=== PATIENT | female | born 1950 | race Caucasian/White ===

== ENCOUNTER → 2017-01-18 | Outpatient (CLI) | payer MEDICARE ==
--- NOTE | 2017-01-18 11:18 | KCIC ---
Bone mineral density exam History: Height loss, family history of osteoporosis Comparison: None Findings: Bone mineral density examination utilizing DEXA was performed. Left hip bone mineral density of 0.669 g/cm2 corresponds with a T score -2.2, Z score -1.0. The bone mineral density of the lumbar spine was 0.751 g/cm2 which corresponds with a T-score of -2.7, Z score -0.9. By World Congress on Osteoporosis criteria, a T score of 0 to-1 SD is considered to be within normal limits. A T score of -1 to -2.5 SD is considered osteopenia. A T score less than -2.5 SD is considered osteoporosis Impression: 1. 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 Electronically signed by: Aniceto Patrick MD (01/18/2017 11:14 AM) [id number]
== END | disposition home or self-care (01) ==
LOC: KCIC DEXA 10:45
PROVIDERS: ATTEND Family Medicine
DX: M81.0 Age-related osteoporosis without current pathological fracture (principal); Z78.0 Asymptomatic menopausal state
CPT/HCPCS: 77080

== ENCOUNTER → 2017-03-12 | Outpatient (CLI) | payer MEDICARE ==
--- NOTE | 2017-03-12 16:14 | KCIC ---
Bilateral digital screening mammograms: Reason for examination: Routine screening. Comparison is made to previous studies dated 03/12/2016 and 03/11/2015. Interpretation is made with the benefit of CAD. The skin and nipples show no abnormalities. No abnormal lymph nodes are seen. The breast parenchyma is predominantly fatty. (Breast density: Category A.) There are small nodules consistent with intramammary lymph nodes again seen bilaterally. There are no new dominant masses, suspicious calcifications or architectural distortions. A few benign calcifications are seen. Impression: No evidence of malignancy. Recommend routine screening. BI-RADS Category 2: Benign. "Our facility is accredited by the [employer] Mammography Program." This patient's information has been entered into a reminder system for the patient to be notified with the results of her examination and a target date for the next mammogram. Electronically signed by: Zandra Sosa MD (03/12/2017 4:11 PM) [id number]
== END | disposition home or self-care (01) ==
LOC: KCIC MAMMO 11:19
PROVIDERS: ATTEND Obstetrics & Gynecology
DX: Z12.31 Encounter for screening mammogram for malignant neoplasm of breast (principal)
CPT/HCPCS: G0202; 77067

== ENCOUNTER → 2019-03-04 | Outpatient (CLI) | payer MEDICARE ==
--- NOTE | 2019-03-04 17:15 | KCIC ---
Bone mineral density exam History: Osteoporosis, postmenopausal, takes Fosamax Comparison: 01/18/2017 Findings: Bone mineral density examination utilizing DEXA was performed. Left hip bone mineral density of 0.709 g/cm2 corresponds with a T score -1.9, Z score is -0.6. There has been 5.9% increase. The bone mineral density of the lumbar spine was 0.816 g/cm2 which corresponds with a T-score of -2.1, Z score -0.2. There has been 8.7% increase. By World Congress on Osteoporosis criteria, a T score of 0 to-1 SD is considered to be within normal limits. A T score of -1 to -2.5 SD is considered osteopenia. A T score less than -2.5 SD is considered osteoporosis Impression: 1. There is osteopenia of the lumbar spine and the left hip. Electronically signed by: Aniceto Patrick MD (03/04/2019 5:12 PM) [id number]
== END | disposition home or self-care (01) ==
LOC: KCIC DEXA 10:53
PROVIDERS: ATTEND Family Medicine
DX: M85.88 Other specified disorders of bone density and structure, other site (principal); M81.0 Age-related osteoporosis without current pathological fracture; Z78.0 Asymptomatic menopausal state
CPT/HCPCS: 77080

== ENCOUNTER → 2019-03-31 | Outpatient (CLI) | payer MEDICARE ==
--- NOTE | 2019-03-31 16:20 | KCIC ---
CHEST PA LATERAL History: Right lower lobe pneumonia, cough, temperature Comparison: None. Findings: 2 views of the chest are submitted. There is no lobar consolidation, pleural fluid, pneumothorax. Cardiac silhouette is within normal limits. There is somewhat coarse interstitial opacity of the right lung base. Impression: 1. There is no lobar consolidation. There is interstitial opacity most notable near the right lung base of uncertain chronicity, could be due to degree of interstitial infiltrate or fibrotic change. Electronically signed by: Aniceto Patrick MD (03/31/2019 4:17 PM) [id number]
== END | disposition home or self-care (01) ==
LOC: KCIC 13:25
PROVIDERS: ATTEND Family Medicine
DX: J18.1 Lobar pneumonia, unspecified organism (principal)
CPT/HCPCS: 71046

== ENCOUNTER → 2021-09-08 | Outpatient (CLI) | payer MEDICARE ==
--- NOTE | 2021-09-08 10:34 | KCIC ---
Bone Densitometry History: Reason: ASYMPTOMATIC MENOPAUSAL STATE / Spl. Instructions: / History: Comparison: 03/04/2019 Findings: Bone Densitometry was performed with dual photon absorption of the lumbar spine and proximal femurs. Lumbar Spine: Bone density is 0.811 g/cm2 for L1-L4. T-score is -2.1. Z-score is -0.0. 1.4 % decrease from 03/04/20 19. Left total femur: Bone density is 0.729 g/cm2. T-score is -1.7. Z-score is -0.3. 2.8 % increase from 03/04/2019. IMPRESSION: Osteopenia in the lumbar spine and left total femur. Bone mineral density has slightly decreased in t he lumbar spine and mildly increased in the left femur. World Health Organization definition of osteoporosis and osteopenia for women: normal equal s T score at or above -1.0 standard deviations; osteopenia equals T score between -1.0 and -2.5 stand criss deviations; osteoporosis equals T score at or below -2.5 standard deviations. Electronically signed by: Lalita Fernandes MD (09/08/2021 10:32 AM) [id number]
== END ==
LOC: KCIC DEXA 09:50
PROVIDERS: ATTEND Family Medicine
DX: M85.88 Other specified disorders of bone density and structure, other site (principal); Z78.0 Asymptomatic menopausal state
CPT/HCPCS: 77080